=== PATIENT | male | born 1995 | race Hispanic/Latino ===

== ENCOUNTER 2021-02-25 11:37 | Emergency (ER) | payer OTHER ==
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
[2021-02-25] MEDS ORDERED: KETOROLAC 30 MG/ML INJ ONE (13:22)
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
[2021-02-25 13:58] LABS: Urine Blood Negative (Negative); Urine Glucose Negative (Negative); Urine Protein Negative (Negative); Urine Specific Gravity 1.025 (1.005-1.030); Urine pH 5.5 (5.0-7.0)
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
[2021-02-25 14:52] VITALS: TEMP 98.1
[2021-02-25 14:54] VITALS: BP 117/65; O2SAT 100
[2021-02-25 15:03] LABS: Urine Bacteria NONE SEEN /HPF (NONE SEEN); Urine RBC <5 /HPF (NONE SEEN)
== END 2021-02-25 14:47 | disposition home or self-care (01) ==
LOC: ER 11:37
DX: M54.5 Low back pain (principal); V49.40XA Driver injured in collision with unspecified motor vehicles in traffic accident, initial encounter; Z87.820 Personal history of traumatic brain injury
CPT/HCPCS: 72131; 72192; 81003; 81015; 96372; 99283